=== PATIENT | male | born 1955 | race Caucasian/White ===

== ENCOUNTER 2022-01-04 09:15 | Emergency (ER) | payer BC, SELFPAY ==
--- NOTE | ~2022-01-04 | CT_ITS ---
EXAMINATION: CT abdomen pelvis w con EXAM DATE: 01/04/2022 11:19 INDICATION: LLQ pain. TECHNIQUE: Spiral CT of the abdomen and pelvis was performed following intravenous injection of 100 m L Omnipaque 350. Axial, coronal and sagittal images of the abdomen and pelvis were reviewed. The do se-length product (DLP) for this examination was 766.15 mGy-cm. The exposure was tailored according to patient size (auto mA exposure control), and iterative reconstruction (ASIR) was used as additiona l dose reduction technique. There is no prior study for comparison. FINDINGS: The liver, spleen, adrenal glands and pancreas are unremarkable. Gallbladder is unremarkab le. No biliary obstruction. Portal and splenic veins are patent. Kidneys enhance symmetrically. T here is no hydronephrosis. The prostate is unremarkable. The bladder is unremarkable. There is no retroperitoneal or pelvic lymphadenopathy. There is small to moderate-sized right inguinal fat-con taining hernia. There is moderate descending and sigmoid colonic diverticulosis moderate amount of inflammation at th e descending sigmoid colonic junction, appearance consistent with acute uncomplicated diverticulitis. The appendix is normal. The stomach and small bowel are unremarkable. There is expected amount of colonic stool. No free intraperitoneal gas. The heart is normal in size. There are no pericardia l or pleural effusions. The lung bases are unremarkable. There are no osteoblastic or osteolytic le sions identified. IMPRESSION: Acute uncomplicated descending/sigmoid diverticulitis. Reviewed, dictated and finalized at location A. D SERVICE TECH
[2022-01-04 09:35] VITALS: BP 150/98; PULSE 80; RESP 14; TEMP 36.7; O2SAT 98
--- NOTE | 2022-01-04 10:03 | ED.ABDPAIN ---
HPI - Abdominal Pain General Chief Complaint: Abdominal Pain Stated Complaint: Lower Left ABD Pain Time Seen by Provider: 01/04/22 09:39 History of Present Illness HPI narrative: Patient is a 66-year-old male who presents ER with left lower quadrant abdominal pain. Ongoing since last night. No fevers or chills or sweats. No diarrhea. No radiation into the rectum. No history of diverticulitis. Last colonoscopy in 2011 with Gaby which did show scattered take you like. Pain is near the site of a previous inguinal hernia repair and is concerned it may be related to that. Denies urinary frequency urgency or dysuria. No hematuria. No history of kidney stones. Pain did not go away with a bowel movement today so he sought further evaluation. Related Data Home Medications Medication Instructions Recorded Confirmed diphenhydramine HCl [Allergy 25 mg PO TID PRN 01/04/22 01/04/22 (diphenhydramine)] Allergies Allergy/AdvReac Type Severity Reaction Status Date / Time codeine Allergy Mild NAUSEA Verified 01/04/22 09:39 Sulfa (Sulfonamide Allergy Mild HIVES Verified 01/04/22 09:39 Antibiotics) Review of Systems Review of Systems: All systems reviewed & are unremarkable except as noted in HPI and below Constitutional: Constitutional: Denies chills, Denies fever(s) and Denies weakness Gastrointestinal: Gastrointestinal: Reports abdominal pain, Denies constipation, Denies diarrhea, Denies nausea and Denies vomiting Genitourinary: Genitourinary: Denies hematuria, Denies dysuria and Denies urinary frequency Musculoskeletal: Musculoskeletal: Denies back pain and Denies muscle cramps PMFSH Past Medical History Medical History (Updated 01/04/22 @ 12:32 by Nima Damon MD) Diverticulosis Surgical History Surgical History (Updated 01/04/22 @ 10:05 by Nima Damon MD) Hx of hernia repair Hx of knee surgery Hx of removal of testicle Social History Social History (Updated 01/04/22 @ 10:05 by Nima Damon MD) Smoking status: Never smoker Exam Narrative: GENERAL: Well-appearing, well-nourished, and in no acute distress. HEAD: Normocephalic, atraumatic. CHEST: Clear to auscultation. No respiratory distress. HEART: Regular rate and rhythm. Normal peripheral pulses. ABDOMEN: Soft, TTP LLQ w/o guarding, nondistended, normal active bowel sounds. No hernia. EXTREMITIES: Normal range of motion. No edema. SKIN: Warm, dry, no rash. NEURO: Alert and oriented x3. PSYCH: Normal mood and affect. Course Course Emergency Course: Informed of results. Discharge home. Vital Signs Vital signs: Vital Signs Temperature 98.1 F 01/04/22 09:35 Pulse Rate 80 01/04/22 09:35 Respiratory Rate 14 01/04/22 09:35 Blood Pressure 150/98 H 01/04/22 09:35 Pulse Oximetry 98 01/04/22 09:35 Temperature 98.1 F 01/04/22 09:35 Pulse Rate 80 01/04/22 09:35 Respiratory Rate 14 01/04/22 09:35 Blood Pressure 150/98 H 01/04/22 09:35 Pulse Oximetry 98 01/04/22 09:35 MDM - Abdominal Pain Lab Data Result diagrams: 01/04/22 10:05 01/04/22 10:05 Labs: Lab Results 01/04/22 01/04/22 Range/Units 10:05 10:05 WBC 7.5 (4.5-10.0) K/mm3 RBC 4.44 L (4.6-6.20) M/mm3 Hgb 14.0 (14.0-18.0) g/dL Hct 41.3 L (42.0-52.0) % MCV 93.0 (80-100) fl MCH 31.5 (26-34) pg MCHC 33.9 (32-36) g/dl RDW 12.8 (11.5-14.5) % Plt Count 203 (150-375) k/mm3 MPV 8.7 (7.4-10.4) fl Immature Gran % (Auto) 0.3 (0-0.5) % Neut % (Auto) 68.2 (45.5-73.1) % Lymph % (Auto) 21.4 (18.3-44.2) % [place] % (Auto) 8.6 H (2.6-8.5) % Eos % (Auto) 1.2 (0-4.4) % Baso % (Auto) 0.3 (0.2-1.2) % Lymph # (Auto) 1.60 (0.9-3.2) K/mm3 [place] # (Auto) 0.6 (0.1-0.6) K/mm3 Eos # (Auto) 0.1 (0-0.3) K/mm3 Baso # (Auto) 0.0 (0.0-0.1) K/mm3 Abs Immat Gran (auto) 0.02 (0.00-0.031) K/mm3 Absolute Neuts (auto) 5.1 (1.3-6.7) K/mm3 Abs
[2022-01-04 10:10] LABS: Basophils Percent Auto 0.3 % (0.2-1.2); Eosinophils Absolute Auto 0.1 K/mm3 (0-0.3); Eosinophils Percent Auto 1.2 % (0-4.4); Hematocrit 41.3 % (42.0-52.0); Immature Granulocyte Absolute 0.02 K/mm3 (0.00-0.031); Immature Granulocyte Percent A 0.3 % (0-0.5); Lymphocytes Percent Auto 21.4 % (18.3-44.2); Mean Corpuscular HGB Conc 33.9 g/dl (32-36); Mean Corpuscular Hemoglobin 31.5 pg (26-34); Mean Platelet Volume 8.7 fl (7.4-10.4); Monocytes Absolute Auto 0.6 K/mm3 (0.1-0.6); Monocytes Percent Auto 8.6 % (2.6-8.5); Neutrophils Absolute Auto 5.1 K/mm3 (1.3-6.7); Neutrophils Percent Auto 68.2 % (45.5-73.1); Platelet Count Result 203 k/mm3 (150-375); Red Blood Count 4.44 M/mm3 (4.6-6.20); Red Cell Distribution Width 12.8 % (11.5-14.5); White Blood Count 7.5 K/mm3 (4.5-10.0)
[2022-01-04 10:30] LABS: Anion Gap 7 mmol/L (8-16); Blood Urea Nitrogen 14 mg/dL (9-20); Calcium 9.7 mg/dL (8.4-10.2); Carbon Dioxide 28 mmol/L (22-30); Chloride 105 mmol/L (98-107); Estimated CRCL calculation 71 ml/min; Estimated Glomerular Filt Rate > 60; Glucose 99 mg/dL (65-110); Potassium 4.3 mmol/L (3.4-5.0); Sodium 140 mmol/L (137-145)
[2022-01-04 12:47] VITALS: BP 139/89; PULSE 81; RESP 18; TEMP 36.6; O2SAT 99
== END 2022-01-04 12:47 | disposition home or self-care (01) ==
PROVIDERS: Emergency Provider Emergency Medicine
DX: K57.32 Diverticulitis of large intestine without perforation or abscess without bleeding (principal)
CPT/HCPCS: 36415; 74177; 80048; 85025; 99284; Q9967

== ENCOUNTER 2022-01-25 10:12 | Observation (INO) | payer BC, SELFPAY ==
[2022-01-25] VITALS (19 sets, daily range): BP systolic 131–174; BP diastolic 80–105; PULSE 70–82; RESP 16–20; TEMP 36.1–36.3; O2SAT 95–100; BMI 28.8
--- NOTE | ~2022-01-25 | CT_ITS ---
EXAMINATION: CT abdomen pelvis w con DATE: 01/25/2022 10:57 INDICATION: Left lower quadrant abdominal pain. TECHNIQUE: Computed tomography (CT) of the abdomen and pelvis was performed with 100 mL Omnipaque 350 intravenous contrast. Automated exposure control and iterative reconstruction technique were employe d. The dose-length product was 792.83 mGy-cm. COMPARISON: CT abdomen and pelvis 01/04/2022 FINDINGS: The visualized portions of the lung bases are clear without pneumonia or pleural effusion. The heart is normal. No pericardial effusion. The liver, gallbladder, spleen, pancreas, adrenal gland s, and kidneys are normal. There are scattered diverticula in the colon. There is fat stranding aroun d a diverticulum of sigmoid colon, consistent with diverticulitis. There are no dilated loops of raquel l. The appendix is normal. There is a right inguinal hernia containing fat. There are no pathological ly enlarged lymph nodes. There is no free intraperitoneal fluid. There are chronic bilateral L5 pars defects. There is 11 mm anterolisthesis of L5 on S1. There is a chronic burst fracture of L3. There i s severe lumbar spondylosis. IMPRESSION: 1. Acute sigmoid diverticulitis, stable from 01/04/2022. No perforation or abscess. Reviewed, dictated and finalized at location A. IMPRESSION: 1. Acute sigmoid diverticulitis, stable from 01/04/2022. No perforation or absce ss.
[2022-01-25 10:31] LABS: Basophils Percent Auto 0.4 % (0.2-1.2); Eosinophils Absolute Auto 0.2 K/mm3 (0-0.3); Eosinophils Percent Auto 2.4 % (0-4.4); Hemoglobin 14.5 g/dL (14.0-18.0); Immature Granulocyte Absolute 0.03 K/mm3 (0.00-0.031); Immature Granulocyte Percent A 0.4 % (0-0.5); Lymphocytes Absolute Auto 1.61 K/mm3 (0.9-3.2); Lymphocytes Percent Auto 20.4 % (18.3-44.2); Mean Corpuscular Hemoglobin 31.1 pg (26-34); Mean Corpuscular Volume 94.4 fl (80-100); Mean Platelet Volume 8.7 fl (7.4-10.4); Monocytes Absolute Auto 0.6 K/mm3 (0.1-0.6); Monocytes Percent Auto 7.6 % (2.6-8.5); Neutrophils Absolute Auto 5.4 K/mm3 (1.3-6.7); Neutrophils Percent Auto 68.8 % (45.5-73.1); Platelet Count Result 233 k/mm3 (150-375); Red Blood Count 4.66 M/mm3 (4.6-6.20); Red Cell Distribution Width 12.7 % (11.5-14.5); White Blood Count 7.9 K/mm3 (4.5-10.0)
[2022-01-25 10:34] LABS: Add Urine Microscopic? NO; Appearance Urine Clear (Clear); Bilirubin Urine Negative (Negative); Blood Urine Negative (Negative); Color Urine Yellow (Yellow); Glucose Urine UA Negative (Negative); Ketones Urine Negative (Negative); Leukocyte Esterase Ur Negative LEU/UL (Negative); Nitrate Urine Negative (Negative); Protein Urine Negative (Negative); Specific Grav Ur 1.008 (1.001-1.035); Urobilinogen Urine Negative mg/dL (<2.0)
[2022-01-25 10:40] LABS: Alanine Aminotransferase 59 U/L (4-50); Albumin Level 4.8 g/dL (3.5-5.1); Alkaline Phosphatase 48 U/L (38-126); Anion Gap 10 mmol/L (8-16); Aspartate Amino Transferase 48 U/L (17-59); Bilirubin,Total 0.7 mg/dL (0.2-1.3); Blood Urea Nitrogen 14 mg/dL (9-20); Calcium 9.4 mg/dL (8.4-10.2); Carbon Dioxide 26 mmol/L (22-30); Chloride 103 mmol/L (98-107); Estimated CRCL calculation 88 ml/min; Estimated Glomerular Filt Rate > 60; Glucose 98 mg/dL (65-110); Lipase 73 U/L (23-300); Potassium 4.3 mmol/L (3.4-5.0); Sodium 139 mmol/L (137-145)
--- NOTE | 2022-01-25 11:14 | ED.ABDPAIN ---
HPI - Abdominal Pain General Chief Complaint: Abdominal Pain Stated Complaint: Abdominal Pain Time Seen by Provider: 01/25/22 10:22 Source: patient Mode of arrival: ambulatory Limitations: no limitations History of Present Illness HPI narrative: Patient is 66 years old white male came to the emergency room with left lower quadrant pain started last night. Patient had similar symptoms 3 weeks ago with a diagnosis of diverticulitis, finished a course of Levaquin and Flagyl with good results. Currently patient denies any fever, chills, nausea, vomiting, diarrhea, constipation, chest pain or shortness of breath. Related Data Home Medications Medication Instructions Recorded Confirmed diphenhydramine HCl [Allergy 25 mg PO TID PRN 01/04/22 01/25/22 (diphenhydramine)] fluticasone propionate [Flonase] 1 spray INTRANASAL BID 01/25/22 01/25/22 Allergies Allergy/AdvReac Type Severity Reaction Status Date / Time codeine Allergy Mild NAUSEA Verified 01/25/22 10:26 Sulfa (Sulfonamide Allergy Mild HIVES Verified 01/25/22 10:26 Antibiotics) Review of Systems Review of Systems: CONSTITUTIONAL: Denies fever, chills, or sweats. EYES: Denies visual changes, redness, or discharge. ENT: Denies rhinorrhea, congestion, sore throat, or otalgia. CARDIOVASCULAR: Denies chest pain, palpitations, or edema. RESPIRATORY: Denies cough or dyspnea. GASTROINTESTINAL: Denies abdominal pain, nausea, vomiting, or diarrhea. GENITOURINARY: Denies dysuria or hematuria. SKIN: Denies rash or itching. MUSCULOSKELETAL: Denies back pain, joint pain, or myalgia. NEUROLOGIC: Denies headache, numbness, or weakness. PSYCHIATRIC: Denies anxiety or depression. PMFSH Past Medical History Medical History Diverticulosis Surgical History Surgical History Hx of hernia repair Hx of knee surgery Hx of removal of testicle Social History Social History Smoking status: Never smoker Exam Narrative: General appearance: Well-developed, well-nourished Skin: Normal color Head: Normocephalic, nontraumatic Eyes: Clear conjunctiva ENT: Oropharynx normal, ears normal, nose normal Neck: Supple, nontender Chest and respiratory: Airway patent, no respiratory distress, no accessory muscle use Heart: Regular rate/rhythm Abdomen: Soft, left lower quadrant tenderness, no guarding or rebound, quiet bowel sounds Vascular: Normal peripheral pulses, normal capillary refill. Musculoskeletal: Normal range of motion, nontender back Neurologic: Alert and oriented ?3, [employer] is normal as tested, no gross motor deficit Course Course Emergency Course: Recurrence diverticulitis. The possibilities could be inadequate course of antibiotic, or malignancy, for possible surgery. Patient will be admitted for IV antibiotic. Consultations Consultation #1: Dr. Griffin Date: 01/25/22 Time: 11:52 Vital Signs Vital signs: Vital Signs Temperature 36.2 C L 01/25/22 10:16 Pulse Rate 80 01/25/22 10:16 Respiratory Rate 18 01/25/22 10:16 Blood Pressure 153/105 H 01/25/22 10:16 Pulse Oximetry 100 01/25/22 10:16 Temperature 36.2 C L 01/25/22 10:16 Pulse Rate 80 01/25/22 10:16 Respiratory Rate 18 01/25/22 10:16 Blood Pressure 174/80 H 01/25/22 10:32 Pulse Oximetry 99 01/25/22 11:15 MDM - Abdominal Pain Differential Diagnosis Differential diagnosis: Likely abdominal pain, calculus of kidney, constipation and diverticulitis Lab Data Result diagrams: 01/25/22 10:25 01/25/22 10:25 Labs: Lab Results
[2022-01-25 11:20] LABS: Lactic Acid Reflex 0.8 mmol/L (0.7-2.1)
[2022-01-25] MEDS: SODIUM CHLORIDE 0.9% IV 1,000 ML 125 ML IV CONT ×2 (12:23→21:18)
--- NOTE | 2022-01-25 12:45 | PC.NURSE ---
Attempted to call floor states they will call back when available.
--- NOTE | 2022-01-25 14:18 | WPDGICN ---
Assessment and Plan Assessment and plan (1) Acute diverticulitis: Code(s): K57.92 - Diverticulitis of intestine, part unspecified, without perforation or abscess without bleeding Status: Acute Assessment and Plan: Patient admitted with appears to be a relapse of acute diverticulitis. Plan is for IV antibiotics. As pain improves we would subsequently sent him home on a week to 10 days worth broad-spectrum antibiotic coverage. Colonoscopy should be performed electively in 1-2 months after discharge. This was anticipated already because of family history of colon polyps for neoplasia screening purposes. (2) Family history of colonic polyps: Code(s): Z83.71 - Family history of colonic polyps Status: Acute Assessment and Plan: Patient's father had colon polyps. Additionally there is a cousin with colon cancer. Plan for patient to have elective colonoscopy after resolution diverticulitis. Perhaps in 1-2 months. This can be arranged electively as outpatient. GI Consult Note Consult date/time: 01/25/22 14:18 HPI: Ricci Orozco is a 66 year old male I am asked to see because of recurrent diverticulitis. Patient developed left lower quadrant abdominal pain prompting him to come to the emergency room 1 month ago. At that time treated with Cipro and Flagyl. He initially had improvement of his left lower quadrant abdominal pain. However over recent days this left lower quadrant pain has returned. He was able to go to the to work today. He subsequently called his doctor because of left lower quadrant pain and presented to the emergency room. It was felt that he had recurrent diverticulitis. For this reason admitted for intravenous antibiotics. Patient states the pain is mild. He states he has continued to have bowel movements. He has no fever. He has had no bleeding. Patient's past history is significant for colonoscopy 10 years ago. Family history is significant that his father had colon polyps. He has a cousin with colon cancer. He anticipated screening colonoscopy and that till this recent event of abdominal pain Review of Systems Review of Systems: All systems reviewed & are unremarkable except as noted in HPI and below PMFSH Past Medical History Medical History Diverticulosis Surgical History Surgical History Hx of hernia repair Hx of knee surgery Hx of removal of testicle Social History Social History Smoking status: Never smoker Meds Home Medications and Allergies Home Medications Medication Instructions Recorded Confirmed Type diphenhydramine HCl [Allergy 25 mg PO TID PRN 01/04/22 01/25/22 History (diphenhydramine)] fluticasone propionate [Flonase] 1 spray INTRANASAL BID 01/25/22 01/25/22 History levofloxacin 750 mg PO DAILY #7 tablet 01/25/22 Rx metronidazole 500 mg PO Q8H 7 Days #21 tablet 01/25/22 Rx Allergies Allergy/AdvReac Type Severity Reaction Status Date / Time codeine Allergy Mild NAUSEA Verified 01/25/22 10:26 Sulfa (Sulfonamide Allergy Mild HIVES Verified 01/25/22 10:26 Antibiotics) Vital Signs Vital Signs - 24 hr 01/25/22 10:16 01/25/22 10:24 01/25/22 10:25 Temperature 97.1 F L Pulse Rate 80 Respiratory Rate 18 Blood Pressure 153/105 H 168/98 H Pulse Oximetry 100 100 100 01/25/22 10:30 01/25/22 10:32 01/25/22 10:45 Temperature Pulse Rate Respiratory Rate Blood Pressure 174/80 H Pulse Oximetry 100 100 100 01/25/22 11:00 01/25/22 11:15 01/25/22 11:30 Temperature Pulse Rate Respiratory Rate Blood Pressure Pulse Oximetry 100 99 100 01/25/22 11:45 01/25/22 11:55 01/25/22 12:00 Temperature Pulse Rate Respiratory Rate Blood Pressure 170/104 H Pulse Oximetry 100 98 99 01/25/22 12:01 01/25/22 12:15
--- NOTE | 2022-01-25 14:56 | PC.NURSE ---
pt had instructions to get a hepatitis panel done today due to an elevated LFT per his primary care provider (Mukund James MD)
[2022-01-25] MEDS: metroNIDAZOLE 500 MG/ISO 100ML 500 MG/100 ML BAG 100 MG IVPB ×2 (16:34→21:18)
--- NOTE | 2022-01-25 20:53 | PM.IMHP ---
H&P: HPI History of Present Illness Date/Time: Patient was placed observation status for expected length of stay less than 23 hours for management, will plan to re-evaluate tomorrow for improvement. 01/25/22 20:53 Chief Complaint: Left lower quadrant pain Narrative: Mr. Orozco is a 66-year-old gentleman who presented emergency room with complaints of left lower quadrant pain. Patient states that he had a similar episode approximately 3 weeks ago was diagnosed with diverticulitis. Patient states he was given 7 days of oral antibiotics and he finished a full course was feeling much improved. Patient states that yesterday he began having pressure and pain over the same area that he had 3 weeks ago. Patient states that yesterday morning he was constipated 1 time and then throughout the day he had normal bowel movements. Patient states that he normally has multiple bowel movements and a day. Patient denies any nausea or vomiting. Patient denies any fever or chills. Patient states the pain is not severe, but he can tell that is there a nagging at times. Patient has a known history of diverticulosis, hypertension, allergic rhinitis. Patient states this time he has not take anything for his hypertension. Review of Systems Review of Systems: A 12 point review of systems was completed patient all pertinent positive and negative per HPI the remainder are unremarkable. [facility] Past Medical History Medical History (Updated 01/25/22 @ 20:59 by Rosina Torres APRN) Allergic rhinitis Diverticulosis Hypertension Surgical History Surgical History Hx of hernia repair Hx of knee surgery Hx of removal of testicle Social History Social History Smoking status: Never smoker Alcohol intake: current Drinks per week: 1 Substance use: never Substance use type: does not use Spiritual care concerns: No Meds Home Medications and Allergies Home Medications Medication Instructions Recorded Confirmed Type diphenhydramine HCl [Allergy 25 mg PO TID PRN 01/04/22 01/25/22 History (diphenhydramine)] fluticasone propionate [Flonase] 1 spray INTRANASAL BID 01/25/22 01/25/22 History levofloxacin 750 mg PO DAILY #7 tablet 01/25/22 Rx metronidazole 500 mg PO Q8H 7 Days #21 tablet 01/25/22 Rx multivitamin with minerals [All 1 tablet PO DAILY 01/25/22 01/25/22 History Purpose Multivitamin-Min] Allergies Allergy/AdvReac Type Severity Reaction Status Date / Time codeine Allergy Mild NAUSEA Verified 01/25/22 10:26 Sulfa (Sulfonamide Allergy Mild HIVES Verified 01/25/22 10:26 Antibiotics) Vital Signs Vital Signs - 24 hr 01/25/22 10:16 01/25/22 10:24 01/25/22 10:25 Temperature 36.2 C L Pulse Rate 80 Respiratory Rate 18 Blood Pressure 153/105 H 168/98 H Pulse Oximetry 100 100 100 01/25/22 10:30 01/25/22 10:32 01/25/22 10:45 Temperature Pulse Rate Respiratory Rate Blood Pressure 174/80 H Pulse Oximetry 100 100 100 01/25/22 11:00 01/25/22 11:15 01/25/22 11:30 Temperature Pulse Rate Respiratory Rate Blood Pressure Pulse Oximetry 100 99 100 01/25/22 11:45 01/25/22 11:55 01/25/22 12:00 Temperature Pulse Rate Respiratory Rate Blood Pressure 170/104 H Pulse Oximetry 100 98 99 01/25/22 12:01 01/25/22 12:15 01/25/22 12:16 Temperature Pulse Rate Respiratory Rate Blood Pressure 152/86 H 170/91 H Pulse Oximetry 100 100 99 01/25/22 12:59 01/25/22 14:21 01/25/22 14:23 Temperature 36.3 C L Pulse Rate 82 76 Respiratory Rate 20 16 Blood Pressure 160/88 H 133/98 H Pulse Oximetry 100 96 95 Exam Narrative: Constitutional: Patient is well-nourished in no acute distress. Patient is alert and oriented x3 HEENT: Moist mucous membranes. No scleral icterus. No lymphadenopathy. Neck: No carotid bruits noted no JVD noted Lungs
[2022-01-26] MEDS: SODIUM CHLORIDE 0.9% IV 1,000 ML 125 ML IV CONT (05:17)
[2022-01-26] MEDS: metroNIDAZOLE 500 MG/ISO 100ML 500 MG/100 ML BAG 100 MG IVPB ×2 (05:17→13:59)
[2022-01-26 06:00] VITALS: BP 132/57; PULSE 68; RESP 18; TEMP 36.2; O2SAT 97
[2022-01-26 06:10] LABS: Basophils Percent Auto 0.4 % (0.2-1.2); Eosinophils Absolute Auto 0.2 K/mm3 (0-0.3); Eosinophils Percent Auto 4.6 % (0-4.4); Hematocrit 38.1 % (42.0-52.0); Hemoglobin 12.8 g/dL (14.0-18.0); Immature Granulocyte Absolute 0.01 K/mm3 (0.00-0.031); Immature Granulocyte Percent A 0.2 % (0-0.5); Lymphocytes Absolute Auto 1.47 K/mm3 (0.9-3.2); Lymphocytes Percent Auto 30.6 % (18.3-44.2); Mean Corpuscular HGB Conc 33.6 g/dl (32-36); Mean Corpuscular Hemoglobin 31.1 pg (26-34); Mean Corpuscular Volume 92.7 fl (80-100); Monocytes Absolute Auto 0.5 K/mm3 (0.1-0.6); Monocytes Percent Auto 9.8 % (2.6-8.5); Neutrophils Absolute Auto 2.6 K/mm3 (1.3-6.7); Neutrophils Percent Auto 54.4 % (45.5-73.1); Platelet Count Result 207 k/mm3 (150-375); Red Blood Count 4.11 M/mm3 (4.6-6.20); Red Cell Distribution Width 12.6 % (11.5-14.5); White Blood Count 4.8 K/mm3 (4.5-10.0)
[2022-01-26 06:30] LABS: Anion Gap 6 mmol/L (8-16); Blood Urea Nitrogen 10 mg/dL (9-20); Calcium 8.7 mg/dL (8.4-10.2); Carbon Dioxide 26 mmol/L (22-30); Chloride 107 mmol/L (98-107); Estimated CRCL calculation 88 ml/min; Estimated Glomerular Filt Rate > 60; Glucose 96 mg/dL (65-110); Sodium 139 mmol/L (137-145)
--- NOTE | 2022-01-26 07:35 | WPDGIPROGNO ---
Progress Note: A&P Assessment and Plan (1) Acute diverticulitis: Code(s): K57.92 - Diverticulitis of intestine, part unspecified, without perforation or abscess without bleeding Status: Acute Assessment and Plan: Patient with a relapse of acute diverticulitis. Plan to advance diet. He has done well with overnight intravenous antibiotics. If he tolerates regular diet would advise discharge with antibiotic therapy orally for 1 week after discharge. Follow-up colonoscopy advised in 1-2 months because of this diverticulitis episode as well as family history of colon polyps. (2) Family history of colonic polyps: Code(s): Z83.71 - Family history of colonic polyps Status: Acute Subjective Date/time seen: 01/26/22 07:35 Patient alert more comfortable today. Denies abdominal pain. Tolerating liquid diet with no difficulty. Review of Systems Review of Systems: All systems reviewed & are unremarkable except as noted in HPI and below Exam Narrative: Physical exam reveals patient to be alert. Vital signs stable. HEENT exam reveals no icterus. Lungs are clear. Heart without murmur. Abdomen bowel sounds are present soft no localized tenderness evident. Objective Data Vital Signs Vital Signs: Vital Signs - 24 hr 01/25/22 10:16 01/25/22 10:24 01/25/22 10:25 Temperature 97.1 F L Pulse Rate 80 Respiratory Rate 18 Blood Pressure 153/105 H 168/98 H Pulse Oximetry 100 100 100 01/25/22 10:30 01/25/22 10:32 01/25/22 10:45 Temperature Pulse Rate Respiratory Rate Blood Pressure 174/80 H Pulse Oximetry 100 100 100 01/25/22 11:00 01/25/22 11:15 01/25/22 11:30 Temperature Pulse Rate Respiratory Rate Blood Pressure Pulse Oximetry 100 99 100 01/25/22 11:45 01/25/22 11:55 01/25/22 12:00 Temperature Pulse Rate Respiratory Rate Blood Pressure 170/104 H Pulse Oximetry 100 98 99 01/25/22 12:01 01/25/22 12:15 01/25/22 12:16 Temperature Pulse Rate Respiratory Rate Blood Pressure 152/86 H 170/91 H Pulse Oximetry 100 100 99 01/25/22 12:59 01/25/22 14:21 01/25/22 14:23 Temperature 97.4 F L Pulse Rate 82 76 Respiratory Rate 20 16 Blood Pressure 160/88 H 133/98 H Pulse Oximetry 100 96 95 01/25/22 22:00 01/26/22 06:00 Temperature 97.0 F L 97.2 F L Pulse Rate 70 68 Respiratory Rate 18 18 Blood Pressure 131/84 132/57 L Pulse Oximetry 99 97 Intake/Output Intake/Output: Intake & Output 01/23/22 01/24/22 01/25/22 01/26/22 23:59 23:59 23:59 23:59 Intake Total 2590 1200 Output Total 1400 2100 Balance 1190 -900 Meds/Results Medications: Active Medications Generic Name Dose Route Start Last Admin Trade Name Freq PRN Reason Stop Dose Admin Diphenhydramine HCl 25 mg 01/25/22 20:52 Diphenhydramine Hcl Cap 25 Mg Capsule PO TID PRN Allergy Symptoms Fluticasone Propionate 1 spray 01/25/22 21:00 01/25/22 21:25 Fluticasone Propionate 0.05% Na Spr 16 Gm Btl (*Bkc) NASAL Not Given Q12HR MARY Acetaminophen 1,000 mg in 100 mls @ 400 mls/hr 01/25/22 11:57 Ofirmev 1,000 Mg Ivpb IVPB 01/26/22 11:56 Q6H PRN Mild Pain (1-3) or Fever Sodium Chloride 1,000 mls @ 125 mls/hr 01/25/22 12:00 01/26/22 05:17 Normal Saline Iv IV CONT 125 mls/hr .Q8H MARY Administration Metronidazole 500 mg in 100 mls @ 100 mls/hr 01/25/22 14:00 01/26/22 06:17 Flagyl 500 Mg/Iso Soln 100 Ml IVPB Infused Q8HR MARY Infusion Levofloxacin/Dextrose 750 mg in 150 mls @ 100 mls/hr 01/25/22 12:00 01/25/22 16:31 Levaquin 750 Mg/D5w 150 Ml IVPB Infused Q24H MARY Infusion Multivitamins/Calcium 1 tablet 01/26/22 09:00 Therapeutic Multivitamins/Minerals Tab (*Bkc) PO DAILY MARY Ondansetron HCl 4 mg 01/25/22 11:57 Ondansetron Inj 4 Mg/2 Ml Vial IV PUSH Q4H PRN Nausea Radiology Results: ITS Impressions Abdomen/Pelvis CT 01/25/22 10:58 ANDREA
[2022-01-26 08:10] VITALS: O2SAT 96
[2022-01-26] MEDS: FLUTICASONE PROPIONATE 0.05% NA SPR 16 GM BTL (*BKC) 1 SPRAY NASAL (08:40)
[2022-01-26] MEDS: THERAPEUTIC MULTIVITAMINS/MINERALS TAB (*BKC) 1 TABLET PO (08:40)
--- NOTE | 2022-01-26 11:55 | PCCCNOTE ---
On 01/26/22, the student, [Hina Jarquin ], provided care and completed [facility] documentation on this patient. I have reviewed the student's documentation and agree with the findings.
--- NOTE | 2022-01-26 13:22 | PM.DS ---
DS: Admitting Diagnosis Discharge Date 01/26/2022 Admitting Diagnosis Left lower quadrant pain DS: Discharge Diagnosis Discharge Diagnosis (1) Acute diverticulitis: Code(s): K57.92 - Diverticulitis of intestine, part unspecified, without perforation or abscess without bleeding Status: Acute Assessment and Plan: Gastroenterology recommends that patient receive a week to 10 days of broad-spectrum antibiotic coverage orally as outpatient upon discharge. Patient will then follow up with GI for colonoscopy 1-2 months after discharge. Pt advised low fiber diet. (2) Allergic rhinitis: Code(s): J30.9 - Allergic rhinitis, unspecified Status: Acute Assessment and Plan: Will resume patient's home medications. (3) Hypertension: Code(s): I10 - Essential (primary) hypertension Status: Acute Assessment and Plan: Patient did not take any medications for hypertension. DS: Summary Hospital Course Hospital Course: 66-year-old gentleman who presented emergency room with complaints of left lower quadrant pain. Patient states that he had a similar episode approximately 3 weeks ago was diagnosed with diverticulitis. Patient states he was given 7 days of oral antibiotics and he finished a full course was feeling much improved. Patient states that yesterday he began having pressure and pain over the same area that he had 3 weeks ago. Patient admitted with appears to be a relapse of acute diverticulitis. Plan is for IV antibiotics. As pain improves we would subsequently sent him home on a week to 10 days worth broad-spectrum antibiotic coverage. Time Spent with Patient Time attestation: Total time spent providing and/or coordinating discharge services: 40 minutes on day Exam Narrative: Constitutional: Patient is well-nourished in no acute distress. Lungs: Lung sounds are clear to auscultation bilaterally. Cardiovascular: Apical pulse is regular rate and rhythm. S1-S2 noted, no S3 or S4 noted. No gallops, murmurs, or rubs noted. Abdomen: Soft and round. Patient complains of mild tenderness with deep palpation of left lower quadrant. No palpable masses. Extremities: No edema. Nontender. Skin: No rashes or lesions. Warm and dry. Skin is intact. Neurological: No focal neurological deficits. Cranial nerves II-XII grossly intact. Psychiatric: Cooperative, appropriate mood, and affect DS: Data Data Completed and Pending Labs on day of discharge: Labs from last 24 hours 01/26/22 01/26/22 05:45 05:45 WBC 4.8 RBC 4.11 L Hgb 12.8 L Hct 38.1 L MCV 92.7 MCH 31.1 MCHC 33.6 RDW 12.6 Plt Count 207 MPV 9.0 Immature Gran % (Auto) 0.2 Neut % (Auto) 54.4 Lymph % (Auto) 30.6 [place] % (Auto) 9.8 H Eos % (Auto) 4.6 H Baso % (Auto) 0.4 Lymph # (Auto) 1.47 [place] # (Auto) 0.5 Eos # (Auto) 0.2 Baso # (Auto) 0.0 Abs Immat Gran (auto) 0.01 Absolute Neuts (auto) 2.6 Absolute Nucleated RBC 0.0 Nucleated RBC % 0.0 Sodium 139 Potassium 4.0 Chloride 107 Carbon Dioxide 26 Anion Gap 6 L BUN 10 Creatinine 0.80 Estim Creat Clear Calc 88 Estimated GFR > 60 Glucose 96 Calcium 8.7 Discharge Plan Discharge Attending physician on discharge: Elizabeth Shankar Consulting providers: Miki Griffin Discharging Clinician: Elizabeth Shankar Anticipated Discharge Date/Time: 01/26/22 13:20 Patient Disposition: Home, Self-Care Activity: as tolerated Diet: low fiber Patient Instructions: Antibiotic Form, Low Fiber Diet (GEN), Diverticulitis Diet (GEN) Stand Alone Forms: General Discharge Information Follow-up/Referrals: Miki Griffin MD [Physician] - (in 1 months time ) Mukund James MD [Primary Care Provider] - Discharge Medications: New levofloxacin 750 mg tablet 750 mg PO DAILY Qty: 7 RF: 5 metronidazole 500 mg tablet 500 mg PO Q8H 7 Days Qty: 21 RF: 0 Continued diphenhy
[2022-01-26 13:36] VITALS: BP 127/76; PULSE 76; RESP 18; TEMP 36.4; O2SAT 100
[2022-01-26 15:18] VITALS: BP 124/70
== END 2022-01-26 13:26 | disposition home or self-care (01) ==
LOC: ANHED 11:15 → ANH3MEDSUR 01-26 03:11
PROVIDERS: Nurse Practitioner Adult Health; Admitting Provider Family Medicine; Emergency Provider Emergency Medicine; PCP Emergency Medicine; Visit Provider Family Medicine
DX: K57.92 Diverticulitis of intestine, part unspecified, without perforation or abscess without bleeding (principal); I10 Essential (primary) hypertension; J30.9 Allergic rhinitis, unspecified; Z83.71 Family history of colonic polyps
CPT/HCPCS: 36415; 74177; 80048; 80053; 81003; 83605; 83690; 85025; 96361; 96365; 96366; 96367; 96376; 99285; A9270; G0378; J1956; J7030; Q9967

== ENCOUNTER 2022-04-14 00:51 | Day surgery (SDC) | payer BC, SELFPAY ==
[2022-03-30 08:41] VITALS: BMI 27.8
[2022-04-14 06:17] VITALS: BP 147/84; PULSE 66; RESP 16; TEMP 36.2; O2SAT 100
[2022-04-14] MEDS: LACTATED RINGERS 1,000 ML 150 ML IV CONT (06:27)
--- NOTE | 2022-04-14 07:18 | WPDANESEPPF ---
Anes - Initial Pre Proc Eval Procedure: Operation Date: 04/14/22 07:30 Proposed Procedures p Colonoscopy - Miki Griffin MD Date/Time: 04/14/22 07:18 Surgeon: Miki Griffin MD Pre Op Diagnosis: diverticulitis Patient Data Age: 66 Gender: M Height: 1.83 m Weight: 92.9 kg Last Vital Signs Temp 97.1 F L 04/14/22 06:17 Pulse 66 04/14/22 06:17 Resp 16 04/14/22 06:17 BP 147/84 H 04/14/22 06:17 Pulse Ox 100 04/14/22 06:17 O2 Del Method Room Air 04/14/22 06:17 Allergies Allergy/AdvReac Type Severity Reaction Status Date / Time codeine Allergy Mild NAUSEA Verified 03/30/22 08:40 Sulfa (Sulfonamide Allergy Mild HIVES Verified 03/30/22 08:40 Antibiotics) Home Medications Medication Instructions Recorded Confirmed Type diphenhydramine HCl 25 mg capsule 25 mg PO TID PRN Allergy Symptoms 01/04/22 04/14/22 History (Allergy (diphenhydramine)) fluticasone propionate 50 1 spray intranasal BID 01/25/22 03/30/22 History mcg/actuation nasal spray,suspension multivitamin with minerals 1 tablet PO DAILY 01/25/22 03/30/22 History lisinopril 5 mg tablet 5 mg PO DAILY 02/07/22 04/14/22 History Patient hx anesthesia problems: none Family hx anesthesia problems: none Results Review: All pre-operative results and documents have been reviewed as part of the pre-operative evaluation. FOR[facility]LY [facility] Past Medical History Medical History Allergic rhinitis Diverticulosis Hypertension Surgical History Surgical History Hx of hernia repair Hx of knee surgery Hx of removal of testicle Social History Social History Smoking status: Former smoker Tobacco type: cigarettes Alcohol intake: current Drinks per week: 1 Alcohol use details: 2 drinks monthly Substance use: never Substance use type: does not use Living arrangements: with family Spiritual care concerns: No Anes - Eval Final PreProcedure Day of Procedure 04/14/22 07:18 Patient weight: normal Heart: regular rate and rhythm Lungs: clear to auscultation Airway: Mallampati scale class II Neurological: alert and oriented Last oral intake: >/= 8 hours ASA classification: II Emergent: no Anesthetic plan: proceed Anesthesia type and monitoring: general GIVS and standard monitoring Results Review: All pre-operative results and documents have been reviewed as part of the pre-operative evaluation. Informed Consent: The patient's anesthetic plan and its attendant risks and benefits were discussed with the patient/family/POA. Questions were solicited and answers provided to the satisfaction of the patient/family/POA.
--- NOTE | 2022-04-14 07:48 | PM.IMHP ---
H&P: HPI History of Present Illness Date/Time: 04/14/22 07:48 Chief Complaint: Diverticulitis and neoplasia screening. Narrative: This is a 66-year-old white male patient who presents for screening colonoscopy. His last colonoscopy was more than 10 years ago. Patient recently admitted the hospital with diverticulitis. This is improved. He notices occasional bouts of constipation improved with laxatives. Denies any recent fever bleeding. Family history noncontributory. Patient has a history of colon polyps. Review of Systems Review of Systems: Review of systems noncontributory [facility] Past Medical History Medical History Allergic rhinitis Diverticulosis Hypertension Surgical History Surgical History Hx of hernia repair Hx of knee surgery Hx of removal of testicle Social History Social History Smoking status: Former smoker Tobacco type: cigarettes Alcohol intake: current Drinks per week: 1 Alcohol use details: 2 drinks monthly Substance use: never Substance use type: does not use Living arrangements: with family Spiritual care concerns: No Meds Home Medications and Allergies Home Medications Medication Instructions Recorded Confirmed Type diphenhydramine HCl 25 mg capsule 25 mg PO TID PRN Allergy Symptoms 01/04/22 04/14/22 History (Allergy (diphenhydramine)) fluticasone propionate 50 1 spray intranasal BID 01/25/22 03/30/22 History mcg/actuation nasal spray,suspension multivitamin with minerals 1 tablet PO DAILY 01/25/22 03/30/22 History lisinopril 5 mg tablet 5 mg PO DAILY 02/07/22 04/14/22 History Allergies Allergy/AdvReac Type Severity Reaction Status Date / Time codeine Allergy Mild NAUSEA Verified 03/30/22 08:40 Sulfa (Sulfonamide Allergy Mild HIVES Verified 03/30/22 08:40 Antibiotics) Vital Signs Vital Signs - 24 hr 04/14/22 06:17 Temperature 97.1 F L Pulse Rate 66 Respiratory Rate 16 Blood Pressure 147/84 H Pulse Oximetry 100 Oxygen Delivery Room Air Exam Narrative: physical exam reveals patient be alert. Vital signs stable. HEENT exam is unremarkable. Lungs are clear to auscultation and percussion. Heart is without murmur or extra sounds. Abdominal exam bowel sounds are present soft nontender with no organomegaly. Digital external rectal exam is normal. Assessment and Plan Assessment and plan (1) Acute diverticulitis: Code(s): K57.92 - Diverticulitis of intestine, part unspecified, without perforation or abscess without bleeding Status: Acute Assessment and Plan: Patient has recent bout of diverticulitis. Currently this has resolved. He has been maintained on a soft to liquid diet. Plan is to increase to high-fiber diet. Colonoscopy will be performed further recommendations will be given after endoscopy. (2) Family history of colonic polyps: Code(s): Z83.71 - Family history of colonic polyps Status: Acute Assessment and Plan: Patient has a family history of colon polyps. Patient's last colonoscopy was 10 years ago. Screening colonoscopy will be performed at this time.
[2022-04-14 07:49] VITALS: BP 140/103; PULSE 76; RESP 21; O2SAT 100
[2022-04-14 07:59] VITALS: BP 119/68; PULSE 68; RESP 18; O2SAT 100
[2022-04-14 08:09] VITALS: BP 126/75; PULSE 65; RESP 19; O2SAT 99
== END 2022-04-14 08:15 | disposition home or self-care (01) ==
PROVIDERS: PCP Emergency Medicine; Visit Provider Internal Medicine Gastroenterology
PROC: 0DJD8ZZ Inspection of Lower Intestinal Tract, Via Natural or Artificial Opening Endoscopic (ICD-10-PCS; CPT 45378; principal; 2022-04-14 07:30)
DX: Z12.11 Encounter for screening for malignant neoplasm of colon (principal); K63.5 Polyp of colon; K64.8 Other hemorrhoids; K57.30 Diverticulosis of large intestine without perforation or abscess without bleeding; Z83.71 Family history of colonic polyps; Z87.19 Personal history of other diseases of the digestive system; I10 Essential (primary) hypertension; Z87.891 Personal history of nicotine dependence
CPT/HCPCS: 45385; 88305; J2704; J7120

== ENCOUNTER 2022-07-04 07:21 | Outpatient (CLI) | payer BC, SELFPAY ==
--- NOTE | ~2022-07-04 | US_ITS ---
EXAMINATION: US right upper quadrant DATE: 07/04/2022 07:58 INDICATION: Elevated liver enzymes TECHNIQUE: Multiple grayscale and Doppler ultrasound images of the abdomen were obtained. COMPARISON: CT, 01/25/2022 FINDINGS: Bowel gas obscures visualization of the pancreas. The visualized portions of the pancreas a re unremarkable. The liver demonstrates increased echogenicity, heterogenous echotexture, and decreas ed through transmission. No surface nodularity. Normal hepatopetal flow in the main portal vein. The gallbladder is normal with no abnormal wall thickening, pericholecystic fluid or stones. The normal c ommon bile duct measures 5 mm. There was no sonographic Parikh sign. IMPRESSION: 1. Diffuse hepatic steatosis. Reviewed, dictated and finalized at location B.
== END 2022-07-04 07:22 | disposition home or self-care (01) ==
PROVIDERS: PCP Emergency Medicine; Visit Provider Emergency Medicine
DX: R74.01 Elevation of levels of liver transaminase levels (principal); K76.0 Fatty (change of) liver, not elsewhere classified
CPT/HCPCS: 76705

== ENCOUNTER → 2022-10-17 16:06 | Outpatient (CLI) | payer BC, SELFPAY ==
--- NOTE | ~2022-10-17 | XR_ITS ---
EXAMINATION: XR chest 2V 10/17/2022 16:24 INDICATION: Cough with fevers PROCEDURE: 2 view chest COMPARISON: 05/13/2008 FINDINGS: The lungs are clear. The cardiomediastinal silhouette is within normal limits. There are no pleural effusions. There is no pneumothorax suspected. IMPRESSION: 1: NO ACUTE CARDIOPULMONARY DISEASE. Reviewed, dictated and finalized at location A. ATTENDANT
== END ==
PROVIDERS: PCP Emergency Medicine; Visit Provider Emergency Medicine
DX: R05.9 Cough, unspecified (principal)
CPT/HCPCS: 71046

== ENCOUNTER 2022-11-25 09:59 | Emergency (ER) | payer BC, SELFPAY ==
--- NOTE | 2022-11-25 10:04 | ED.URI ---
HPI - URI/Sore Throat General Chief Complaint: Upper Respiratory Infection Stated Complaint: cov positive Time Seen by Provider: 11/25/22 10:13 Source: patient and RN notes reviewed Mode of arrival: ambulatory Limitations: no limitations History of Present Illness HPI Narrative: 67-year-old male presents concern for positive COVID test. Reports symptoms started on Monday. Reports headache, scratchy throat, low-grade fevers, cough, nasal congestion. 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 MD elicited complaint: cough Related Data Home Medications Medication Instructions Recorded Confirmed diphenhydramine HCl 25 mg capsule 25 mg PO TID PRN Allergy Symptoms 01/04/22 11/25/22 (Allergy (diphenhydramine)) fluticasone propionate 50 1 spray intranasal BID 01/25/22 11/25/22 mcg/actuation nasal spray,suspension multivitamin with minerals 1 tablet PO DAILY 01/25/22 11/25/22 lisinopril 5 mg tablet 5 mg PO DAILY 02/07/22 11/25/22 Allergies Allergy/AdvReac Type Severity Reaction Status Date / Time codeine Allergy Mild NAUSEA Verified 03/30/22 08:40 Sulfa (Sulfonamide Allergy Mild HIVES Verified 03/30/22 08:40 Antibiotics) Review of Systems Review of Systems: CONSTITUTIONAL: Reports malaise, migraine fever. EYES: Denies visual changes, redness, or discharge. ENT: Reports rhinorrhea, congestion, scratchy throat. Denies sinus pain, otalgia and sore throat. CARDIOVASCULAR: Denies chest pain, palpitations, or edema. RESPIRATORY: Reports cough. Denies dyspnea. GASTROINTESTINAL: Denies abdominal pain, nausea, vomiting, diarrhea SKIN: Denies rash or itching. MUSCULOSKELETAL: Reports myalgia. NEUROLOGIC: Reports headache. All systems reviewed & are unremarkable except as noted in HPI and below PMFSH Past Medical History Medical History Allergic rhinitis Diverticulosis Hypertension Surgical History Surgical History Hx of hernia repair Hx of knee surgery Hx of removal of testicle Social History Social History Smoking status: Former smoker Tobacco type: cigarettes Alcohol intake: current Drinks per week: 1 Alcohol use details: 2 drinks monthly Substance use: never Substance use type: does not use Spiritual care concerns: No Comments At time of signature, agree with nursing past medical, surgical, social and family history. There is no relevant family history pertinent to the presenting complaint Exam Narrative: GENERAL: Well-appearing, well-nourished, and in no acute distress. HEAD: Normocephalic EYES: PERRLA, conjunctivae clear ENT: Nares clear, clear discharge. Mucous membranes moist. TM pearly ponce with sharp light reflex bilaterally; no tragal tenderness. Oropharynx not erythematous without lesions. Tonsils not enlarged and without exudate, no drooling, no hoarseness, no trismus, uvula midline. NECK: Supple. No lymphadenopathy CHEST: Clear to auscultation, breath sounds equal. No wheezing, rhonchi, rales, or stridor. No respiratory distress, speaks in full sentences. HEART: Regular rate and rhythm. No murmur heard. SKIN: Warm, dry, no rash. NEURO: Alert and oriented x3. PSYCH: Normal mood and affect Course Course Emergency Course: Patient is aware of diagnosis, understands and agrees to treatment plan. Anticipatory guidance given. Patient agrees to follow-up as directed and is aware of reasons to seek care at the emergency department. Portions of this record may have been created with voice recognition software Level of Care: Express Care Visit Vital Signs Vital signs: Reviewed. MDM - URI/Sore Throat MDM Narrative Medical decision making narrative: Differential diagnosis considered: Casas virus, strep pharyngitis, allergic rhinitis, upper respiratory tract infection, sinusitis, rhinosinusitis, nasopharyngitis.
[2022-11-25 10:10] VITALS: BP 152/87; PULSE 95; RESP 16; TEMP 36.6; O2SAT 100
== END 2022-11-25 10:31 | disposition home or self-care (01) ==
PROVIDERS: Emergency Provider Nurse Practitioner; PCP Emergency Medicine
DX: U07.1 COVID-19 (principal); I10 Essential (primary) hypertension; Z87.891 Personal history of nicotine dependence
CPT/HCPCS: 87426; 99213; C9803; G0463

== ENCOUNTER 2023-05-30 15:24 | Outpatient (CLI) | payer BC, SELFPAY ==
--- NOTE | ~2023-05-30 | XR_ITS ---
XR hip BI 2V w AP pelvis DATE: 05/30/2023 15:54 INDICATION: Right groin pain. Right hip pain. TECHNIQUE: AP pelvis. AP and lateral views of each hip. COMPARISON: None FINDINGS: Prominent degenerative disc disease at L2-3, L4-5 and L5-S1 and anterolisthesis at L5-S1 de monstrated to better advantage on lumbar spine radiographs. Chronic burst fracture deformity of L3. No pelvic fracture or bone destruction is detected. The pubic symphysis and sacroiliac joints are int act. No fracture or dislocation, avascular necrosis or bone destruction of either hip. Hip joint spaces ar e symmetric and relatively preserved. IMPRESSION: No significant abnormality of the left or right hips Reviewed, dictated and finalized at location L.
--- NOTE | ~2023-05-30 | XR_ITS ---
XR lumbar spine 2-3V DATE: 05/30/2023 15:54 INDICATION: Right groin pain. Right hip pain. TECHNIQUE: AP, lateral, coned lateral lumbosacral views COMPARISON: 01/25/2022 CT abdomen pelvis FINDINGS: Again noted is stable chronic prominent burst fracture deformity of L3, not significantly c hanged since 01/25/2022. There is multilevel degenerative disc disease, particularly severe at L2-3, L4-5 and L5-S1. There is stable chronic borderline grade 1/grade 2 anterolisthesis at L5-S1 due to chronic L5 pars in terarticularis defects demonstrated on 01/25/2022 CT examination. No recent fracture or bone destruction is evident. The lumbar pedicles are intact. The sacroiliac joints are preserved. IMPRESSION: Chronic burst fracture deformity of L3 Multilevel degenerative disc disease Borderline grade 1/grade 2 anterolisthesis at L5-S1 due to bilateral L5 pars intra-articular is defec ts No significant change since 01/25/2022 Reviewed, dictated and finalized at location L. IMPRESSION: Chronic burst fracture deformity of L3 Multilevel degenerative disc disease Borderline grade 1/grade 2 anterolisthesis at L5-S1 due to bilateral L5 pars in tra-articular is defects No significant change since 01/25/2022
== END 2023-05-30 15:25 | disposition home or self-care (01) ==
PROVIDERS: PCP Emergency Medicine; Visit Provider Emergency Medicine
DX: M25.551 Pain in right hip (principal); S32.031A Stable burst fracture of third lumbar vertebra, initial encounter for closed fracture; M51.36 Other intervertebral disc degeneration, lumbar region
CPT/HCPCS: 72100; 73521

== ENCOUNTER 2023-07-25 06:31 | Emergency (ER) | payer OTHER, BC, SELFPAY ==
[2023-07-25] VITALS (16 sets, daily range): BP systolic 132–186; BP diastolic 89–99; PULSE 71–86; RESP 11–24; TEMP 36.7–36.8; O2SAT 98–100
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
--- NOTE | ~2023-07-25 | XR_ITS ---
XR shoulder LT min 2V 07/25/2023 09:42 Indication: Left shoulder pain Procedure: 4 views left shoulder Comparison: No prior studies for comparison. Findings: There is contour irregularity to the humeral head suggesting an old Hill-Sachs fracture def ormity of the humerus. No acute fractures identified. Mild osteoarthritis of the acromioclavicular an d glenohumeral joints. Impression: 1: No acute fracture. Reviewed, dictated and finalized at location L. Impression: 1: No acute fracture.
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
--- NOTE | 2023-07-25 09:21 | PC.NURSE ---
Dr. Stewart assessed pt. Noted pt clothes cover with glass. Pt gown & linen change. No embedded glass noted.
[2023-07-25] MEDS: KETOROLAC 15 MG/ML VIAL (*BKC) IV PUSH (11:11)
[2023-07-25] MEDS: CYCLOBENZAPRINE HCL 10 MG TABLET PO (11:20)
[2023-07-25] MEDS: HYDROcodone/acetaminophen (*CRX) 5-325 MG TABLET 1 TAB PO (11:21)
== END 2023-07-25 11:40 | disposition home or self-care (01) ==
PROVIDERS: Emergency Provider Emergency Medicine; PCP Emergency Medicine
DX: S01.21XA Laceration without foreign body of nose, initial encounter (principal); S01.511A Laceration without foreign body of lip, initial encounter; S49.92XA Unspecified injury of left shoulder and upper arm, initial encounter; T14.8XXA Other injury of unspecified body region, initial encounter; R07.89 Other chest pain; I10 Essential (primary) hypertension; Z87.891 Personal history of nicotine dependence; V54.5XXA Driver of pick-up truck or van injured in collision with heavy transport vehicle or bus in traffic accident, initial encounter
CPT/HCPCS: 70450; 70486; 71046; 72125; 73030; 73502; 96374; 99284; A9270; J1885

== ENCOUNTER 2024-03-10 14:48 | Emergency (ER) | payer BC, SELFPAY ==
--- NOTE | 2024-03-10 14:52 | ED.GENADULT ---
HPI - General Adult General Chief complaint: Unspecified Stated complaint: Blood Pressure Time Seen by Provider: 03/10/24 14:52 Source: patient Mode of arrival: ambulatory Limitations: no limitations History of Present Illness HPI narrative: 68-year-old male patient presents to the [facility] with request for medication refill. Patient has been off of his medication for about 2-3 weeks of lisinopril for his hypertension. Patient states he is in between doctors right now. Patient has an appointment with his new primary care doctor on March 27. Patient states he went to stop in after work today just to check his blood pressure to see if he needed a refill. Denies any chest pain or shortness of breath at this time. Denies any lightheadedness dizziness, nausea, vomiting or diarrhea. Related Data Home Medications Medication Instructions Recorded Confirmed lisinopril 5 mg tablet 5 mg PO DAILY 02/07/22 03/10/24 Allergies Allergy/AdvReac Type Severity Reaction Status Date / Time Sulfa (Sulfonamide Allergy Mild HIVES Verified 03/10/24 15:03 Antibiotics) codeine AdvReac Mild NAUSEA Verified 03/10/24 15:03 Review of Systems Review of Systems: CONSTITUTIONAL: Denies fever, chills, or sweats. EYES: Denies visual changes, redness, or discharge. ENT: Denies rhinorrhea, congestion, sore throat, or otalgia. CARDIOVASCULAR: Denies chest pain, palpitations, or edema. RESPIRATORY: Denies cough or dyspnea. GASTROINTESTINAL: Denies abdominal pain, nausea, vomiting, or diarrhea. GENITOURINARY: Denies dysuria or hematuria. SKIN: Denies rash or itching. MUSCULOSKELETAL: Denies back pain, joint pain, or myalgia. NEUROLOGIC: Denies headache, numbness, or weakness. PSYCHIATRIC: Denies anxiety or depression. [facility] Past Medical History Medical History Allergic rhinitis Diverticulosis Hypertension Surgical History Surgical History Hx of hernia repair Hx of knee surgery Hx of removal of testicle Social History Social History Smoking status: Former smoker Tobacco type: cigarettes Alcohol intake: current Drinks per week: 1 Alcohol use details: 2 drinks monthly Substance use: never Substance use type: does not use Living arrangements: with family Spiritual care concerns: No Comments At the time of my signature I agree with nursing past medical history, surgical, social, and family history. There is no relevant family history pertinent to the presenting complaint. Exam Narrative: GENERAL: Well-appearing, well-nourished, and in no acute distress. HEAD: Normocephalic, atraumatic. EYES: PERRLA and EOMI. ENT: Nares clear, no rhinorrhea or epistaxis. Mucous membranes moist. NECK: Supple. No lymphadenopathy CHEST: Clear to auscultation. No respiratory distress. HEART: Regular rate and rhythm. No murmur heard. Normal peripheral pulses. ABDOMEN: Soft, nontender, nondistended, normal active bowel sounds. EXTREMITIES: Normal range of motion. No edema. SKIN: Warm, dry, no rash. NEURO: No focal deficits. Alert and oriented x3. Course Course Level of Care: Express Care Visit Vital Signs Vital signs: Vital Signs Temperature 36.4 C L 03/10/24 14:56 Pulse Rate 83 03/10/24 14:56 Respiratory Rate 16 03/10/24 14:56 Blood Pressure 161/105 H 03/10/24 14:56 Pulse Oximetry 100 03/10/24 14:56 Temperature 36.4 C L 03/10/24 14:56 Pulse Rate 83 03/10/24 14:56 Respiratory Rate 16 03/10/24 14:56 Blood Pressure 161/105 H 03/10/24 14:56 Pulse Oximetry 100 03/10/24 14:56 Vital signs reviewed. The patient has been informed that they may have pre-hypertension or Hypertension based on a BP reading in the department. I recommend that the patient call the primary care provider listed on their discharge instructions or
[2024-03-10 14:56] VITALS: BP 161/105; PULSE 83; RESP 16; TEMP 36.4; O2SAT 100
== END 2024-03-10 15:08 | disposition home or self-care (01) ==
PROVIDERS: Emergency Provider Nurse Practitioner Family
DX: I10 Essential (primary) hypertension (principal); Z87.891 Personal history of nicotine dependence
CPT/HCPCS: 99211; G0463

== ENCOUNTER 2025-09-26 09:25 | Emergency (ER) | payer BC, SELFPAY ==
[2025-09-26 09:33] VITALS: BP 164/92; PULSE 86; RESP 16; TEMP 36.7; O2SAT 100
--- NOTE | 2025-09-26 09:37 | ED.URI ---
HPI - URI/Sore Throat General Chief Complaint: Upper Respiratory Infection Stated Complaint: headache Time Seen by Provider: 09/26/25 09:35 Source: patient Mode of arrival: ambulatory Limitations: no limitations History of Present Illness HPI Narrative: Ricci is a 70-year-old male patient presenting to the clinic today with complaints of headache, sinus pressure, sneezing, cough, runny nose, nasal congestion, and scratchy throat times 3-4 days. He took some Benadryl last night had Tylenol this morning for his headache. Currently rates his pain a 2/10. Denies any fevers, chills, body aches. Just received his COVID and influenza vaccine on Monday of this week. Feels as though he is starting to get a sinus infection. Related Data Home Medications ?Medication ?Instructions ?Recorded ?Confirmed ?Last Taken ?Type diphenhydramine HCl 25 mg capsule 25 mg PO QHS PRN 03/28/24 05/20/25 Unknown History (Benadryl) fluticasone propionate 50 1 spray intranasal DAILY 03/28/24 05/20/25 Unknown History mcg/actuation nasal spray,suspension (Allergy Relief (fluticasone)) Allergies Allergy/AdvReac Type Severity Reaction Status Date / Time Sulfa (Sulfonamide Allergy Mild HIVES Verified 09/26/25 09:32 Antibiotics) adhesive AdvReac Mild erythema Verified 09/26/25 09:32 codeine AdvReac Mild NAUSEA Verified 09/26/25 09:32 Review of Systems Review of Systems: Pertinent positives per HPI. Patient denies any fever, chills, rash, headache, visual changes, dizziness, shortness of breath, chest pain, palpitations, nausea, vomiting, diarrhea, constipation, abdominal pain, or any urinary issues. [facility] Past Medical History Medical History Allergic rhinitis Hypertension Diverticulosis Surgical History Surgical History Hx of hernia repair Hx of knee surgery Family History Family History Father Liver cancer Mother Hypertension Thyroid disorder Social History Social History Social History: Caffeine-coffee Smoking packs per day: 1 Smoking cigarettes per day: 20.0 Years smoked: 4 Smoking pack-years: 4.00 Smoking status: Former smoker Tobacco type: cigarettes Smoking end date: 11/13/79 Alcohol intake: current Drinks per week: 1 Alcohol use details: 2 drinks monthly Substance use: never Substance use type: does not use Do You Feel Safe in your Home?: Yes Lack of Transportation: No Lack of Food: Never True Current Housing: I Have Housing Concerned About Future Housing: No Difficulty Paying Gas/Electric Bills: No Difficulty Paying for Meds: No Currently Unemployed: No Education: High School Diploma/GED Difficulty w/ Childcare or Family Care: No Living arrangements: with family Spiritual care concerns: No Comments At the time of my signature, I reviewed and agree with the nursing past medical, surgical, social, and family history. There is no relevant family history pertinent to the patient complaint. Exam Narrative: General: Well-developed, well nourished, in no apparent distress Head: Normocephalic, atraumatic Eyes: Pupils equally round and reactive to light bilaterally, EOM intact, sclera and conjunctive clear, no discharge, lids normal Ears: TMs intact and clear, ear canals clear, no drainage, grossly hearing normal. Nose: Nares patent, clear nasal discharge, mild inflammation, no sinus tenderness. Mouth: Oral pharynx without lesions or masses, good dentition, MMM. PND Neck: Supple, trachea midline, no enlargement of anterior or posterior cervical nodes, no thyroid masses or goiter palpable. Cardio: Regular rate and rhythm, s1 and s2 normal, no murmur appreciated. Resp: Clear to auscultation bilaterally, no rhonchi, rales, wheezing or rubs Course Course Emergency Course: Portions of this record may have been created with voice recognition software. Level of Care: Express Care Visit Vital Signs Vital signs: Vital Signs Temperature 36.7 C 09/26/25 09:33 Pulse Rate 86 09/26/25 09:33 Respiratory Rate 16 09/26/25 09:33 Blood Pressure 164/92 H 09/26/25 09:33 Pulse Oximetry 100 09/26/25 09:33 Oxygen Delivery Room Air 09/26/25 09:33 Temperature 36.7 C 09/26/25 09:33 Pulse Rate 86 09/26/25 09:33 Respiratory Rate 16 09/26/25 09:33 Blood Pressure 164/92 H 09/26/25 09:33 Pulse Oximetry 100 09/26/25 09:33 Oxygen Delivery Room Air 09/26/25 09:33 Vital signs reviewed MDM - URI/Sore Throat MDM Narrative Medical decision making narrative: At the time of visit patient is resting comfortably on the exam table. Patient appears to be nontoxic. Complaints of headache, sinus pressure, sneezing, cough, runny nose, nasal congestion, and scratchy throat times 3 days. He took some Benadryl last night had Tylenol this morning for his headache. Currently rates his pain a 2/10. Denies any fevers, chills, body aches. Just received his COVID and influenza vaccine on Monday of this week. Feels as though he is starting to get a sinus infection. On exam patient has mild TMs intact and clear, clear nasal drainage, mild anterior turbinate inflammation, oral pharynx mildly red with postnasal drip, lung sounds are clear, heart rates regular rate and rhythm. COVID and influenza testing was ordered. Labs: COVID and influenza testing was negative. Plan: I suspect patient has an upper respiratory infection. Patient is reporting a lot of congestion and sinus pressure. Will send in prescription for prednisone and Tessalon Perles. Supportive measures were discussed with the patient and they voiced understanding discharge instructions and agrees to treatment plan. Return precautions reviewed Differential Diagnosis Differential diagnosis: Likely upper respiratory infection, otitis media, sinusitis, viral infection, bronchitis, influenza, pharyngitis and other (COVID) Discharge Plan Discharge Clinical Impression: Upper respiratory infection Qualifiers: URI type: unspecified URI Qualified Code(s): J06.9 - Acute upper respiratory infection, unspecified Patient Disposition: Home Condition: Stable Instructions: Antibiotic Form, Cold Symptoms (ED), Postnasal Drip (DC) Additional Instructions: COVID and influenza testing was negative in the clinic today. Take prescription medications only as prescribed-prednisone and Tessalon Perles Increase fluids and stay well hydrated May take Tylenol or motrin as directed on bottle for pain/fever May use Flonase 1 spray in each nare daily May take OTC antihistamines such as Zyrtec or Claritin daily as directed on bottle May apply Vicks vapor rub to chest to open sinuses Sinus rinses for congestion Cepacol spray, cough drops, throat lozenges, warm tea with honey/lemon, gargle salt water to soothe throat BRAT diet for diarrhea Clear liquids x 24 hours then advance as tolerated for nausea/vomiting Go to the ED if you develop a worsening in your condition- high fever not controlled by Tylenol or Motrin, dehydration, weakness, lethargy, shortness of breath, or chest pain. Follow up with your PCP in 3-5 days if symptoms persist. Patient Language: Prydeinig Prescriptions: New prednisone 20 mg tablet 40 mg PO DAILY 5 Days Qty: 10 0RF benzonatate 200 mg capsule 200 mg PO TID 7 Days Qty: 21 0RF No Action fluticasone propionate [Allergy Relief (fluticasone)] 50 mcg/actuation spray,suspension 1 spray intranasal DAILY Rx Instructions: administer into each nostril diphenhydramine HCl [Benadryl] 25 mg capsule 25 mg PO QHS PRN lisinopril 10 mg tablet 10 mg PO DAILY Qty: 90 1RF Follow-up/Referrals: Barbie Gabriel DO [Primary Care Provider, [facility]] Time of Disposition: 09:55 Quality NIHSS Nursing Documentation ED NIHSS nursing documentation: reviewed/agree
[2025-09-26 10:03] LABS: EDCOVIDSCREEN Negative (Negative); EDINFLUASCREEN Negative (Negative); EDINFLUBSCREEN Negative (Negative)
== END 2025-09-26 10:00 | disposition home or self-care (01) ==
PROVIDERS: Emergency Provider Nurse Practitioner Family; PCP Family Medicine
DX: J06.9 Acute upper respiratory infection, unspecified (principal); Z20.822 Contact with and (suspected) exposure to COVID-19; I10 Essential (primary) hypertension; Z87.891 Personal history of nicotine dependence
CPT/HCPCS: 87426; 87804; 99213; G0463

== ENCOUNTER 2025-09-29 09:23 | Emergency (ER) | payer BC, SELFPAY ==
[2025-09-29 09:31] VITALS: BP 152/88; PULSE 87; RESP 16; TEMP 36.3; O2SAT 100
--- NOTE | 2025-09-29 09:56 | ED_ITS ---
HPI - URI/Sore Throat General Chief Complaint: Upper Respiratory Infection Stated Complaint: Sinus Infection Symptoms Time Seen by Provider: 09/29/25 09:56 Source: patient and RN notes reviewed Mode of arrival: ambulatory Limitations: no limitations History of Present Illness HPI Narrative: 70-year-old male presents with concern for worsening sinus pain, pressure and congestion. He reports he was given steroid and Tessalon Perles on Monday and symptoms have since worsened. He took [id number] cough medicine this morning that helped a little bit. MD elicited complaint: cough, nasal congestion and sinus pain Related Data Home Medications ?Medication ?Instructions ?Recorded ?Confirmed ?Last Taken ?Type diphenhydramine HCl 25 mg capsule 25 mg PO QHS PRN all ergic reaction 03/28/24 09/29/25 Unknown History (Benadryl) fluticasone propionate 50 1 spray intranasal DAILY 09/29/25 Unknown History mcg/actuation nasal spray,suspension (Allergy Relief (fluticasone)) Allergies Allergy/AdvReac Type Severity Reaction Status Date / Time Sulfa (Sulfonamide Allergy Mild HIVES Verified 09/29/25 09:28 Antibiotics) adhesive AdvReac Mild erythema Verified 09/29/25 09:28 codeine AdvReac Mild NAUSEA Verified 09/29/25 09:28 Review of Systems Review of Systems: CONSTITUTIONAL: Denies malaise, chills, sweats, or fever. EYES: Denies visual changes, redness, or discharge. ENT: Reports rhinorrhea, congestion, sinus pain CARDIOVASCULAR: Denies chest pain, palpitations, or edema. RESPIRATORY: Reports productive cough. Denies dyspnea. GASTROINTESTINAL: Denies abdominal pain, nausea, vomiting, diarrhea SKIN: Denies rash or itching. MUSCULOSKELETAL: Denies myalgia. NEUROLOGIC: Denies headache. All systems reviewed & are unremarkable except as noted in HPI and below PMFSH Past Medical History Medical History Allergic rhinitis Hypertension Diverticulosis Surgical History Surgical History Hx of hernia repair Hx of knee surgery Family History Family History Father Liver cancer Mother Hypertension Thyroid disorder Social History Social History Social History: Caffeine-coffee Smoking packs per day: 1 Smoking cigarettes per day: 20.0 Years smoked: 4 Smoking pack-years: 4.00 Smoking status: Former smoker Tobacco type: cigarettes Smoking end date: 11/13/79 Alcohol intake: current Drinks per week: 1 Alcohol use details: 2 drinks monthly Substance use: never Substance use type: does not use Do You Feel Safe in your Home?: Yes Lack of Transportation: No Lack of Food: Never True Current Housing: I Have Housing Concerned About Future Housing: No Difficulty Paying Gas/Electric Bills: No Difficulty Paying for Meds: No Currently Unemployed: No Education: High School Diploma/GED Difficulty w/ Childcare or Family Care: No Living arrangements: with family Spiritual care concerns: No Comments At time of signature, agree with nursing past medical, surgical, social and family history. There is no relevant family history pertinent to the presenting complaint Exam Narrative: GENERAL: Well-appearing, well-nourished, and in no acute distress. HEAD: Normocephalic EYES: PERRLA, conjunctivae clear ENT: Nares clear, turbinates edematous and erythematous. Mucous membranes moist. TM pearly ponce with dull light reflex bilaterally; no tragal tenderness. Oropharynx not erythematous without lesions. Tonsils not enlarged and without exudate, no drooling, mild hoarseness, no trismus, uvula midline. NECK: Supple. No lymphadenopathy CHEST: Clear to auscultation, breath sounds equal. No wheezing, rhonchi, rales, or stridor. No respiratory distress, speaks in full sentences. Cough noted HEART: Regular rate and rhythm. No murmur heard. SKIN: Warm, dry, no rash. NEURO: Alert and oriented x3. PSYCH: Normal mood and affect Course Course Emergency Course: Patient is aware of diagnosis, understands and agrees to treatment plan. Anticipatory guidance given. Patient agrees to follow-up as directed and is aware of reasons to seek care at the emergency department. Portions of this record may have been created with voice recognition software Level of Care: Express Care Visit Vital Signs Vital signs: Vital Signs Temperature 97.4 F L 09/29/25 09:31 Pulse Rate 87 09/29/25 09:31 Respiratory Rate 16 09/29/25 09:31 Blood Pressure 152/88 H 09/29/25 09:31 Pulse Oximetry 100 09/29/25 09:31 Temperature 97.4 F L 09/29/25 09:31 Pulse Rate 87 09/29/25 09:31 Respiratory Rate 16 09/29/25 09:31 Blood Pressure 152/88 H 09/29/25 09:31 Pulse Oximetry 100 09/29/25 09:31 Reviewed. MDM - URI/Sore Throat MDM Narrative Medical decision making narrative: Differential diagnosis considered: Casas virus, strep pharyngitis, allergic rhinitis, upper respiratory tract infection, sinusitis, rhinosinusitis, nasopharyngitis. viral pharyngitis, otitis media, otitis externa, pneumonia, bronchitis, viral cough syndrome, viral syndrome, and influenza. Exam findings show no acute concerns or changes; patient is non-toxic appearing and is in no distress. Patient is appropriate for outpatient treatment and follow-up. Lab Data Attestation: I reviewed the patient's lab results. Critical Care Time Critical Care Time Critical Care Time: No Discharge Plan Discharge Clinical Impression: Sinobronchitis Patient Disposition: Home Condition: Stable Instructions: Antibiotic Form, Sinusitis (ED) Additional Instructions: Take medications as prescribed Recommend antihistamine such as Benadryl at night time and Zyrtec or Deepa during the day Cough syrup may cause drowsiness; avoid driving or take it at night time. Also, recommend symptomatic treatment includes: rest, fluids, and increase humidity of the air at home. Recommend Acetaminophen as directed on the bottle to reduce fever, pain, headache. Avoid smoking/second-hand smoke. Please schedule a follow-up visit with your personal physician for further evaluation and treatment within 3-5days. Including recheck and discussion of your blood pressure. If your symptoms persist, change or worsen significantly before you can contact your personal physician then please, without delay, go to the emergency department for further evaluation. Patient Language: Nicaraguan Prescriptions: New amoxicillin-pot clavulanate 875-125 mg tablet 1 tablet PO Q12H 10 Days Qty: 20 0RF No Action prednisone 20 mg tablet 40 mg PO DAILY 5 Days Qty: 10 0RF benzonatate 200 mg capsule 200 mg PO TID 7 Days Qty: 21 0RF fluticasone propionate [Allergy Relief (fluticasone)] 50 mcg/actuation spray,suspension 1 spray intranasal DAILY Rx Instructions: administer into each nostril diphenhydramine HCl [Benadryl] 25 mg capsule 25 mg PO QHS PRN (Reason: allergic reaction) lisinopril 10 mg tablet 10 mg PO DAILY Qty: 90 1RF Follow-up/Referrals: Barbie Gabriel DO [Primary Care Provider, [facility]] Time of Disposition: 10:04
== END 2025-09-29 10:07 | disposition home or self-care (01) ==
PROVIDERS: Emergency Provider Nurse Practitioner; PCP Family Medicine
DX: J32.9 Chronic sinusitis, unspecified (principal); J40 Bronchitis, not specified as acute or chronic; Z87.891 Personal history of nicotine dependence; I10 Essential (primary) hypertension
CPT/HCPCS: 99213; G0463